=== PATIENT | female | born 1950 | race Hispanic/Latino ===

== ENCOUNTER 2022-11-15 21:51 | Emergency (ER) | payer OTHER, MEDICARE ==
[~2022-11-15] VITALS: Ht 165.1 cm; Wt 67.6 kg
[~2022-11-15 21:51] MED LIST: AEC81 PO; ATOR40TA69 PO; CALC-1209 PO; CITA-107 PO; LEVO100 PO; LISI10TA24 PO; MEMA10TA55 PO; METF-445 PO; OMEP20TA20 PO
[2022-11-15 22:07] VITALS: BP 151/46; PULSE 65; RESP 20; O2SAT 100
[2022-11-15] MEDS ORDERED: IBUPROFEN 600 MG TABLET PO ONE (23:00)
[2022-11-15] MEDS ORDERED: ACET-2247 PO (23:35)
== END 2022-11-15 23:50 | disposition home or self-care (01) ==
LOC: EDH 21:51
DX: S16.1XXA Strain of muscle, fascia and tendon at neck level, initial encounter (principal); I10 Essential (primary) hypertension; E11.9 Type 2 diabetes mellitus without complications; Z79.82 Long term (current) use of aspirin; Z79.84 Long term (current) use of oral hypoglycemic drugs; Z79.899 Other long term (current) drug therapy; Z98.890 Other specified postprocedural states; V89.2XXA Person injured in unspecified motor-vehicle accident, traffic, initial encounter; Y93.I9 Activity, other involving external motion; Y92.488 Other paved roadways as the place of occurrence of the external cause; Y99.8 Other external cause status
CPT/HCPCS: 72040